=== PATIENT | male | born 1955 | race Caucasian/White ===

== ENCOUNTER 2020-03-01 10:01 | Day surgery (SDC) | payer BC ==
[2020-03-01] VITALS (10 sets, daily range): BP systolic 110–151; BP diastolic 65–95; PULSE 41–60; TEMP 98.3
[~2020-03-01] VITALS: Ht 177.8 cm; Wt 100.9 kg
[~2020-03-01 10:01] MED LIST: ALEVE 220MG220 MG PO; ASPIRIN 32325 MG/TAB PO; ASPIRIN E.C. 8181 MG PO; CHANTIX1 MG PO; CHANTIX1 TAB PO; CLOPIDOGREL PO; IMDUR30 MG PO; LIPITOR 80MG80 MG PO; LISINOPRIL PO; LOPRESSOR 550 MG/TAB PO; METOPROLOL SUCC25 MG PO; METOPROLOL TART50 MG PO; NIACIN500 M1 PO; NIASPAN 500MG500 MG PO; NIASPAN500 MG PO; NITROSTAT0.4 MG/TAB SL; NO HOME MEDICATIONS; PLAVIX 75MG TAB75 MG PO; VICODIN 5/5001 UDTAB PO; ZESTRIL 10MG10 MG PO
[2020-03-01 11:12] LABS: HEMATOCRIT 46.4 % (42.0-52.0); MEAN CELL VOLUME 93 fl (80.0-100.0); MEAN CORPUSCULAR HEMOGLOBIN 32 pg (27.0-31.0); MEAN CORPUSCULAR HGB CONC 35 g/dl (33.0-37.0); MEAN PLATELET VOLUME 10.1 fl (7.4-10.4); PLATELET COUNT 188 K/mm3 (130-400); RED BLOOD COUNT 4.99 M/mm3 (4.20-5.60); REDCELL DISTRIBUTION WIDTH-CV 12.9 % (11.5-14.5)
[2020-03-01 11:14] LABS: INR 1.1 (0.8-3.0); PROTHROMBIN TIME 12.6 SECONDS (9.7-12.8)
[2020-03-01 11:16] LABS: CALCIUM 8.9 mg/dL (8.4-10.2); CREATININE, serum 0.92 (0.66-1.25); PARTIAL THROMBOPLASTIN TIME 32.3 SECONDS (26.0-37.0); POTASSIUM 4.1 mmol/L (3.4-5.0)
--- NOTE | 2020-03-01 11:51 | NUR ---
SEE MERGE DOCUMENTATION FOR MEDICATION ADMINISTRATION AND INTRA/POST PROCEDURE SEDATION ASSESSMENTS.
--- NOTE | 2020-03-01 13:10 | NUR ---
PT back from clinical lab specialist, bs report from Derrick MEADOWS. pt is gcs 16, p,w,d, cms intact to extremities. rt groin site looks good, no hematoma or bleeding. pt aware of poc for bedrest 2-4 hours. pt has call light.
--- NOTE | 2020-03-01 16:34 | NUR ---
PT ESCORTED TO EXIT VIA WHEELCHAIR AT THIS TIME. I REVIEWED DC/FU INSTRUCTIONS WITH PT. HE VERBALIZED UNDERSTANDING. IV WAS DC'D WITH CATH INTACT. PT HAS BEEN AMBULATORY AROUND UNIT, TO BATHROOM, AND HAS BEEN ABLE TO GET DRESSED WITH NO PROBLEM, AND NO BLEEDING OR HEMATOMA FORMATION. PT DENIES CONCERNS AT TIME OF DEPARTURE.
== END 2020-03-01 16:36 | disposition home or self-care (01) ==
LOC: COL.CAR 10:01
PROVIDERS: Internal Medicine Interventional Cardiology
DX: I25.10 Atherosclerotic heart disease of native coronary artery without angina pectoris (principal); I65.02 Occlusion and stenosis of left vertebral artery; I45.89 Other specified conduction disorders; Z95.5 Presence of coronary angioplasty implant and graft; Z95.1 Presence of aortocoronary bypass graft; Z79.82 Long term (current) use of aspirin; Z79.899 Other long term (current) drug therapy; E78.5 Hyperlipidemia, unspecified; Z87.891 Personal history of nicotine dependence
CPT/HCPCS: C1760; C1769; C1894; J1644; J2250; J3010; Q9967

== ENCOUNTER 2021-01-31 16:11 | Day surgery (SDC) | payer BC ==
[~2021-01-31] VITALS: Ht 177.8 cm; Wt 99.7 kg
[2021-01-31] VITALS (8 sets, daily range): BP systolic 111–146; BP diastolic 80–101; PULSE 59–61; TEMP 98
[2021-01-31 13:14] LABS: HEMATOCRIT 48.5 % (42.0-52.0); HEMOGLOBIN 16.6 g/dl (13.5-18.0); MEAN CELL VOLUME 93 fl (80.0-100.0); MEAN CORPUSCULAR HEMOGLOBIN 32 pg (27.0-31.0); MEAN CORPUSCULAR HGB CONC 34 g/dl (33.0-37.0); MEAN PLATELET VOLUME 9.8 fl (7.4-10.4); PLATELET COUNT 213 K/mm3 (130-400); RED BLOOD COUNT 5.22 M/mm3 (4.20-5.60); REDCELL DISTRIBUTION WIDTH-CV 13.5 % (11.5-14.5)
[2021-01-31 13:22] LABS: CREATININE, serum 1.17 (0.66-1.25); POTASSIUM 4.4 mmol/L (3.4-5.0)
[2021-01-31 13:25] LABS: INR 1.2 (0.8-3.0)
[2021-01-31 13:28] LABS: PARTIAL THROMBOPLASTIN TIME 33.2 SECONDS (26.0-37.0)
--- NOTE | 2021-01-31 16:05 | NUR ---
SEE MERGE DOCUMENTATION FOR MEDICATION ADMINISTRATION TIMES AND INTRA/POST PROCEDURE SEDATION ASSESSMENTS.
[~2021-01-31 16:11] MED LIST changes: +IMDUR 30MG30 MG/TAB PO; +RANEXA 500MG T500 MG PO; +TOPROL XL100 MG PO; +VOLTAREN GEL 1%1 TU TP
--- NOTE | 2021-01-31 17:00 | NUR ---
Report from Derrick MEADOWS. Right groin site CD&I, soft to palpation with palpable pedal pulses. VS baseline.
--- NOTE | 2021-01-31 19:30 | NUR ---
Pt ready for departure. He has been up and ambulatory in room, rt groin site remains soft with no problems. I reviewed dc/fu instructions wtih pt who verbed understanding. IV was dc'd with cath intact, dressing applied. Pt to exit via wheelchair.
== END 2021-01-31 21:01 | disposition home or self-care (01) ==
LOC: COL.CAR 16:11
PROVIDERS: Internal Medicine Interventional Cardiology
DX: I25.119 Atherosclerotic heart disease of native coronary artery with unspecified angina pectoris (principal); I65.02 Occlusion and stenosis of left vertebral artery; I70.8 Atherosclerosis of other arteries; I25.10 Atherosclerotic heart disease of native coronary artery without angina pectoris; I10 Essential (primary) hypertension; I49.5 Sick sinus syndrome; Z95.1 Presence of aortocoronary bypass graft; Z79.82 Long term (current) use of aspirin; Z79.899 Other long term (current) drug therapy; Z79.02 Long term (current) use of antithrombotics/antiplatelets; Z87.891 Personal history of nicotine dependence; Z20.822 Contact with and (suspected) exposure to COVID-19
CPT/HCPCS: C1760; C1769; C1894; J1644; J2250; J3010; Q9967